=== PATIENT | male | born 1980 | race Caucasian/White ===

== ENCOUNTER 2020-06-06 03:00 | Emergency (ER) | payer OTHER ==
[~2020-06-06] VITALS: Ht 170.2 cm; Wt 99.8 kg
[2020-06-06 03:02] VITALS: BP 129/90
--- NOTE | 2020-06-06 03:08 | NUR ---
PT TAKEN TO BED 7
[2020-06-06 03:09] VITALS: BP 129/90
--- NOTE | 2020-06-06 03:09 | NUR ---
COVERING PRIMARY RN FOR LUNCH RELIEF--- SEE COMPLETE ASSESSMENT FOR ADDITIONAL INFORMATION.
--- NOTE | 2020-06-06 03:11 | NUR ---
Dr. Edge examining patient.
[2020-06-06] MEDS ORDERED: KETOROLAC 60 MG/2 ML VIAL IM ONE (03:15)
--- NOTE | 2020-06-06 03:30 | NUR ---
PT REPORTS DECREASED PAIN, 3/10
--- NOTE | 2020-06-06 03:43 | NUR ---
Patient discharged with v/s stable. Written and verbal after care instructions given and explained. Patient alert, oriented and verbalized understanding of instructions. Ambulatory with steady gait. All questions addressed prior to discharge. ID band removed. Patient advised to follow up with PMD. Rx of TRAMADOL, ROBAXIN, MOTRIN given. Patient educated on indication of medication including possible reaction and side effects. Opportunity to ask questions provided and answered.
== END 2020-06-06 03:43 | disposition home or self-care (01) ==
LOC: MED 03:00
DX: M54.40 Lumbago with sciatica, unspecified side (principal); R03.0 Elevated blood-pressure reading, without diagnosis of hypertension; F17.200 Nicotine dependence, unspecified, uncomplicated
CPT/HCPCS: 96372; 99283; J1885

== ENCOUNTER 2022-09-24 02:05 | Emergency (ER) | payer OTHER ==
[~2022-09-24] VITALS: Ht 170.2 cm; Wt 95.3 kg
[2022-09-24 02:06] VITALS: BP 153/98
--- NOTE | 2022-09-24 02:12 | NUR ---
TO LOBBY FOLLOWING TRIAGE
--- NOTE | 2022-09-24 07:54 | NUR ---
PATIENT LEFT WITHOUT BEING SEEN BY DR. PIEDRA. NO FURTHER CARE PROVIDED FOR PATIENT.
== END 2022-09-24 07:54 | disposition left against medical advice (07) ==
LOC: MED 02:05
DX: L02.211 Cutaneous abscess of abdominal wall (principal); R10.30 Lower abdominal pain, unspecified; Z53.21 Procedure and treatment not carried out due to patient leaving prior to being seen by health care provider
CPT/HCPCS: 99281

== ENCOUNTER 2023-01-03 19:59 | Emergency (ER) | payer MEDICAID, OTHER ==
[~2023-01-03] VITALS: Ht 172.7 cm; Wt 104.3 kg
[2023-01-03 20:34] VITALS: BP 112/70; PULSE 67; RESP 20; TEMP 98; O2SAT 97
--- NOTE | 2023-01-03 20:49 | NUR ---
PT TAKEN TO BED 4
--- NOTE | 2023-01-03 21:13 | NUR ---
Dr. Youssef examining patient.
--- NOTE | 2023-01-03 21:20 | NUR ---
EVALUATED PT AT BS. AWAITING FURTHER ORDERS.
[2023-01-03] MEDS ORDERED: NAPR-1704 PO (21:50)
--- NOTE | 2023-01-03 21:56 | NUR ---
Patient discharged with v/s stable. Written and verbal after care instructions given and explained. Patient alert, oriented and verbalized understanding of instructions. Ambulatory with steady gait. All questions addressed prior to discharge. ID band removed. Patient advised to follow up with PMD. Rx of naproxen given. Opportunity to ask questions provided and answered. Dr. Youssef's orders reinforced
== END 2023-01-03 21:56 | disposition home or self-care (01) ==
LOC: MED 19:59
DX: M75.21 Bicipital tendinitis, right shoulder (principal); Z48.00 Encounter for change or removal of nonsurgical wound dressing
CPT/HCPCS: 99282

== ENCOUNTER 2023-09-27 03:22 | Emergency (ER) | payer MEDICAID ==
[~2023-09-27] VITALS: Ht 170.2 cm; Wt 86.6 kg
[~2023-09-27 03:22] MED LIST: NAPR-1704 PO
[2023-09-27 03:35] VITALS: BP 139/90; PULSE 91; RESP 18; TEMP 97.7; O2SAT 97
[2023-09-27] MEDS: KETOROLAC 30 MG/ML VIAL IM ONE (06:53)
[2023-09-27] MEDS ORDERED: NAPR-54 PO (07:08)
[2023-09-27 07:46] VITALS: BP 135/82; PULSE 88; RESP 16; TEMP 98; O2SAT 99
== END 2023-09-27 07:46 | disposition home or self-care (01) ==
LOC: MED 03:22
DX: S92.912A Unspecified fracture of left toe(s), initial encounter for closed fracture (principal); M79.672 Pain in left foot; R03.0 Elevated blood-pressure reading, without diagnosis of hypertension; W01.0XXA Fall on same level from slipping, tripping and stumbling without subsequent striking against object, initial encounter; Y93.89 Activity, other specified; Y92.89 Other specified places as the place of occurrence of the external cause; Y99.8 Other external cause status
CPT/HCPCS: 73630; 96372; 99283; J1885